=== PATIENT | female | born 1970 | race Caucasian/White ===

== ENCOUNTER 2020-02-25 09:56 | Emergency (ER) | payer SELFPAY ==
[~2020-02-25] VITALS: Ht 175.3 cm; Wt 76.7 kg
--- NOTE | 2020-02-25 10:00 | NUR ---
[id number] home. per EMS, AMS since waking up this morning. 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 to ER bed 1, hooked to cardiac monitor technician and pox, noted w L sided weakness as residual of stroke, per report, patient had stroke a month ago, changed to hosp gown, warm blanket provided, Dr Brasher at bedside
[2020-02-25] MEDS ORDERED: AMYL1CAP56 PO (10:14)
[2020-02-25] MEDS ORDERED: DEXA4TAB PO (10:14)
[2020-02-25] MEDS ORDERED: TAMOXIFEN PO (10:14)
[2020-02-25] MEDS ORDERED: PANT40TA4 PO (10:14)
[2020-02-25 10:25] LABS: BASOPHILS % (AUTO) 0.2 % (0.0-2.0); EOSINOPHILS % (AUTO) 0.1 % (0.0-6.0); HEMATOCRIT 32 % (33-45); HEMOGLOBIN 10.5 g/dL (11.5-14.8); LYMPHOCYTES % (AUTO) 8.7 % (20.0-44.0); MEAN CORPUSCULAR HGB CONC 33 g/dl (31.0-36.0); MEAN CORPUSCULAR VOLUME 85 fL (82-100); MONOCYTES # (AUTO) 0.8 /CMM (0.1-1.30); MONOCYTES % (AUTO) 6.7 % (2.0-12.0); NEUTROPHILS # (AUTO) 9.4 /CMM (1.8-8.9); NEUTROPHILS % (AUTO) 84.3 % (43.0-81.0); PLATELET COUNT (AUTO) 307 /CMM (150-450); RED BLOOD CELL COUNT(AUTO) 3.78 MIL/uL (4.0-5.2); WHITE BLOOD COUNT (AUTO) 11.2 K/uL (4.3-11.0)
--- NOTE | 2020-02-25 10:28 | NUR ---
COVID 19 SWAB DONE AND SENT TO LAB
--- NOTE | 2020-02-25 10:29 | NUR ---
PICKED UP BY KERA FARRIS VIA [facility] FOR CT SCAN
[2020-02-25] MEDS ORDERED: IV NS 0.9% 500 ML BAG IV ONE (10:30)
[2020-02-25 10:34] LABS: CARBON DIOXIDE 17 mmol/L (21-32); CHLORIDE 105 mmol/L (98-107); CREATININE 3.5 mg/dL (0.6-1.3); GLUCOSE 129 mg/dL (74-106); POTASSIUM 4.4 mmol/L (3.5-5.1); SODIUM SERUM 140 mmol/L (136-145); UREA NITROGEN, BLOOD 72 mg/dL (7-18)
[2020-02-25 10:38] LABS: ALANINE AMINOTRANSFERASE 40 U/L (12-78); ALBUMIN 2.7 g/dL (3.4-5.0); ALKALINE PHOSPHATASE 146 U/L (46-116); ASPARTATE AMINOTRANSFERASE 57 U/L (15-37); BILIRUBIN,DIRECT 0.1 mg/dL (0.0-0.2); BILIRUBIN,TOTAL 0.4 mg/dL (0.2-1.0); TOTAL PROTEIN, SERUM 6.7 g/dL (6.4-8.2)
[2020-02-25 10:44] LABS: ACETAMINOPHEN < 2 ug/ml (10-30); SALICYLATE 1.9 mg/dL (2.8-20.0)
[2020-02-25 10:49] LABS: SERUM AMMONIA 18 umol/L (11-32)
--- NOTE | 2020-02-25 11:11 | NUR ---
1109 urine specimen sent to the lab through straight cath
--- NOTE | 2020-02-25 11:41 | NUR ---
RECIEVED A CALL FROM [facility]. PT IS GOING TO ROOM 4522. NUMBER FOR REPORT [phone] EXT [phone]. [facility] ETA 15 MINUTES.
--- NOTE | 2020-02-25 11:58 | NUR ---
REPORT GIVEN TO JF WATERS OF ICU [facility]
[2020-02-25 12:00] VITALS: BP 123/87
--- NOTE | 2020-02-25 12:04 | NUR ---
PATIENT PICKED UP BY [facility], PATIENT AAO x 3, VSS. PATIENT WILL BE TRANSFERRED TO [facility].
[2020-02-25 12:35] LABS: BILIRUBIN,URINE Negative (NEGATIVE); BLOOD, URINE Small Ery/uL (NEGATIVE); COLOR,URINE Yellow (YELLOW); KETONES,URINE Trace (NEGATIVE); LEUKOCYTE ESTERASE ,URINE Negative (NEGATIVE); NITRITE, URINE Negative (NEGATIVE); PROTEIN,URINE 100 mg/dl (NEGATIVE); UGLUCOSE Negative (NEGATIVE); UROBILINOGEN,URINE 0.2 EU/dL (0.2)
[2020-02-25 12:43] LABS: APPEARANCE,URINE SLIGHTLY CLOUDY (CLEAR)
[2020-02-25 12:55] LABS: BACTERIA,URINE Few /HPF (None Seen); SQUAMOUS EPITHELIAL CELL,UR Few /HPF (None Seen); URINE AMORPHOUS URATE Many /HPF (None Seen); WBC,URINE 0-2 /HPF (0-3)
== END 2020-02-25 12:04 | disposition short-term general hospital (02) ==
LOC: ER 10:01
DX: I61.8 Other nontraumatic intracerebral hemorrhage (principal); G93.6 Cerebral edema; R40.2411 Glasgow coma scale score 13-15, in the field [EMT or ambulance]; R41.82 Altered mental status, unspecified; C79.31 Secondary malignant neoplasm of brain; C50.919 Malignant neoplasm of unspecified site of unspecified female breast; E11.9 Type 2 diabetes mellitus without complications; N28.9 Disorder of kidney and ureter, unspecified; Z86.73 Personal history of transient ischemic attack (TIA), and cerebral infarction without residual deficits
CPT/HCPCS: 36415; 70450; 71045; 80048; 80076; 80305; 80329; 81001; 82140; 83605; 84484; 85025; 87040 ×2; 87086; 87426; 99291; G0480; J7040; 81000-TC